=== PATIENT | male | born 1965 | race Caucasian/White ===

== ENCOUNTER 2018-10-10 10:42 | Inpatient (IN) | payer BC, OTHER ==
[~2018-10-10] VITALS: Ht 185.4 cm; Wt 106.6 kg
[2018-10-10 11:07] LABS: ABSOLUTE NEUTROPHILS 3.9 thou/uL (1.4-8.2); BASOPHILS 0.7 % (0.0-2.0); EOSINOPHILS 1.4 % (0.0-3.0); HEMOGLOBIN 14.9 gm/dL (14.0-18.0); LYMPHOCYTES 17.8 % (24.0-44.0); MCH 30.7 pg (26.0-34.0); MCHC 33.7 g/dL (28.0-37.0); MCV 91.1 fL (80.0-100.0); MONOCYTES 8.5 % (1.0-8.0); PLATELET COUNT 182 thou/uL (150-400); POLYS 71.6 % (36.0-66.0); RBC 4.84 mil/uL (4.50-6.00); RDW 13.6 % (10.5-14.5); WBC 5.4 thou/uL (4.0-11.0)
[2018-10-10 11:17] LABS: CALCIUM 8.7 mg/dL (8.5-10.1); POTASSIUM 3.8 mmol/L (3.5-5.1)
[2018-10-10 11:23] LABS: ALBUMIN 3.6 g/dL (3.4-5.0); TOTAL BILIRUBIN 0.5 mg/dL (<0.1-1.0)
--- NOTE | 2018-10-10 11:50 | NUR ---
CONSCIOUS SEDATION FOR LEFT ANKLE REDUCTION INITIATED AND COMPLETED AT 11:50. A TOTAL OF KETAMINE 150MG, VERSED 2MG AND ETOMIDATE 10MG GIVEN FOR SEDATION. MEDICATION PUSHED IVSP BY JOHANN GONZALEZ. DR NEFF AT BEDSIDE. REDUCTION COMPLETED AND RIGID SPLINT PLACED. PT TOLERATED WELL. WILL CONTINUE TO MONITOR.
[2018-10-10 15:17] VITALS: BP 105/62
[2018-10-10] MEDS ORDERED: METFORMIN HCL1000 MG PO (15:32)
[2018-10-10] MEDS ORDERED: AMARYL2 MG (15:33)
[2018-10-10] MEDS ORDERED: AZATHIOPRINE50 MG PO (15:34)
[2018-10-10] MEDS ORDERED: LOPRESSOR50 PO (15:34)
[2018-10-10] MEDS ORDERED: LIPITOR10 MG PO (15:35)
[2018-10-10] MEDS ORDERED: COLAZAL750 M1 PO (15:35)
[2018-10-10] MEDS ORDERED: ZOLPIDEM TARTRA10 MG PO (15:35)
[2018-10-10] MEDS ORDERED: IRBESARTAN-HCT1 EAC1 PO (15:36)
[2018-10-10 19:15] LABS: PROTIME 9.7 Seconds (9.3-11.4)
[2018-10-10 21:00] VITALS: BP 125/83; BP 147/90
--- NOTE | 2018-10-10 23:42 | O ---
[address] [address] OPERATIVE REPORT Name: CLAY WALLACE Room #: 432-P ADM IN M.R.#: [id number] Admission: 10/10/18 ������������������ Attend Phys: Davon Mendoza MD Discharge: ������������������ Date of : 69 Report #: [id number] THIS REPORT FOR: //name// CC: Davon Mendoza DATE OF SERVICE: 10/10/2018 SERVICE: Orthopedics. FACILITY: [facility]. SURGEON: Clint Chu MD SENIOR STRATEGY MANAGER: Desiree Rangel NP. INDICATION FOR SENIOR STRATEGY MANAGER: Extremity positioning, retraction, assistance with the provisional fixation and internal fixation. PREOPERATIVE DIAGNOSIS: Type 2 open left ankle fracture dislocation. POSTOPERATIVE DIAGNOSES: 1. Type 2 open left ankle fracture dislocation. 2. Traumatic articular cartilage injury of the talus with intra-articular loose body. 3. Trimalleolar equivalent, left ankle fracture dislocation. PROCEDURES: 1. Irrigation and debridement down to bone, left open ankle fracture dislocation. 2. Open reduction and internal fixation of left trimalleolar equivalent ankle fracture with fixation of the fibula. COMPLICATIONS: None. DRAINS: None. SPECIMENS: None. ANESTHESIA: General. FINDINGS: 1. Clean wound on deep inspection. 2. Comminution within the joint with articular cartilage fragments of the talar, which were removed. 3. Small posterior malleolus fracture, treated with ligamentotaxis reduction. 4. Synthes one third tubular fibular plate with hybrid fixation. [address] [address] OPERATIVE REPORT Name: CLAY WALLACE Room #: 432-P [facility] IN [facility]#: [id number] Admission: 10/10/18 ������������������ Attend Phys: Davon Mendoza MD Discharge: ������������������ Date of : 69 Report #: [id number] HISTORY AND INDICATIONS: The patient is a 53-year-old diabetic gentleman who slipped in the mud going out to his yard to cut the grass this morning. He sustained an ankle fracture dislocation that was open. He received antibiotics in the Emergency Room as well as closed reduction and initial wound care. Orthopedics was consulted for evaluation, treatment, and management. He was indicated for surgical treatment. Risks, benefits, alternatives, and indications of surgery were discussed with him in detail. Risks include but not limited to pain, bleeding, infection, injury to nerves or blood vessels, malunion, nonunion, need for further surgery including revision as well as complications related to anesthesia. We had discussion about open ankle fracture in the context of his diabetes and the significant risk they are in. His questions were answered. He gave full informed consent and wished to move forward with surgical treatment. PROCEDURE IN DETAIL: After left lower extremity was correctly identified in the preoperative holding area as the operative site, the patient was taken to the operating room where general anesthesia was induced without complication. Tourniquet was applied to the left leg. Left lower extremity was prepped and draped in standard sterile fashion and leg was held up for exsanguination. Time-out procedure was performed and the tourniquet was inflated. He had a puncture wound measuring 15 mm in length transversely in the anteromedial aspect of the ankle. There was shredded skin present and that was contused as well. This was excised sharply and then laceration was extended anteriorly and distally as well as proximally and posteriorly allowing full visualization. The saphenous vein was identified and was protected throughout the exposure. The medial aspect of the ankle was opened and explored. There was fracture hematoma within the ankle. There was some shredding of the deltoid ligaments in the anterior capsule. The frayed injured tissue was excised sharply, the talus was evaluated. There was a significant injury to the talus articular cartilage. A small fragment was lavaged and was removed. This fragment measured approximately 5 mm x 5 mm and a total surface area of the articular cartilage damage was approximately 15 x 15 mm towards the anterior aspect of the talus. The posterior malleolus comminuted fragment was visualized, was debrided of hematoma and was assessed for reduced ability and it was felt that it was going to be reducible when the ankle itself was reduced and it was a small Lisfranc fragment that internal fixation would not be a viable option for it. The final decision on the posterior malleolus was made after fixation of lateral side. After the wound was copiously irrigated and the joint was irrigated as well with the pulse lavage, attention was turned towards the lateral side. A longitudinal incision made off of the lateral aspect of the ankle. Dissection was taken down to the level of the fibula. The superficial peroneal nerve was visualized within the wound, it was dissected on the posterior side of the nerve and then [facility] [address] [place] [address] OPERATIVE REPORT Name: CLAY WALLACE Room #: 432-P ADM IN M.R.#: [id number] Admission: 10/10/18 ������������������ Attend Phys: Davon Mendoza MD Discharge: ������������������ Date of : 69 Report #: [id number] was retracted anteriorly and protected throughout the procedure. The fracture was then carefully visualized and debrided of hematoma. There was comminution of the fibula anteriorly at the syndesmosis and then posteriorly as well. The syndesmosis; however, did not appear to be ruptured. The fibular shaft was then reduced to the distal fragment and held in place provisionally. A lag screw was placed anterior to posterior and a good compression across the fracture was achieved. C-arm was used to aid in the assessment of the reduction as well as the fibular length and the tibiotalar alignment. After this was placed, a 7-hole one third tubular plate was selected for neutralization mode with a history of diabetes and the open fracture, I felt that most rigid fixation available was optimal. Unfortunately, we had to use a one-third tubular plate because of his thin skin, distally we are not able to use a thicker plate. For that reason, elected for a locking plate and used hybrid fixation with nonlocking screws to compress the plate down the bone and then locking screws to provide enhanced fixation. C-arm was used to aid in the placement of the screws and a secure neutralization was achieved with the internal fixation with a total of 6 screws. At this point, the cotton test was performed under C-arm to ensure that the syndesmosis was stable and no fixation was required across the syndesmosis. At this point, cross-table lateral x-ray was used. The posterior malleolus was evaluated. There was acceptable alignment and anatomic tibiotalar relationship on the lateral view with the ankle in neutral dorsiflexion. Final x-rays were taken and then, the wounds were once again irrigated. The medial side was closed with 2-0 PDS and then, nylon after the tourniquet was let down, hemostasis achieved. The lateral side was closed with 2-0 Vicryl followed by 3-0 nylon as well. Sterile dressing was applied followed by a very well-padded short leg splint. The splint was specifically over padded due to his history of diabetes in order to prevent any wound issues if at all possible. PLAN: Postoperative plan will be for 3 months of nonweightbearing based on radiographic signs of healing. The patient will also receive 48 hours of IV antibiotics due to the open fracture and then, will be allowed for discharge home. ��������������������������������������������� <ELECTRONICALLY SIGNED> ���������������������������������������� By: Clint Chu MD ��������������������������������������������� 10/10/18 2342 [id number] Clint Chu MD /nt
[2018-10-10 23:50] VITALS: BP 125/83
[2018-10-11 00:50] VITALS: BP 115/57
[2018-10-11 03:10] VITALS: BP 121/71
[2018-10-11 05:57] LABS: HEMATOCRIT 38.5 % (42.0-52.0); HEMOGLOBIN 13.2 gm/dL (14.0-18.0); MCH 31.1 pg (26.0-34.0); MCHC 34.3 g/dL (28.0-37.0); MCV 90.5 fL (80.0-100.0); RBC 4.26 mil/uL (4.50-6.00); RDW 13.9 % (10.5-14.5); WBC 7.5 thou/uL (4.0-11.0)
[2018-10-11 06:01] LABS: CALCIUM 7.8 mg/dL (8.5-10.1); CREATININE 0.8 mg/dL (0.7-1.3); POTASSIUM 3.7 mmol/L (3.5-5.1)
--- NOTE | 2018-10-11 06:16 | NUR ---
PT ARIVED ON THE UNIT POST OP FROM LEFT ANKLE FX. BRYCE WRAPS IN PLACE AND BOTH EXTREMITIES ELEVATED. PAIN MEDS GIVEN FOR MANAGEMENT AND DOCUMENTED. FALL PREC IN PLACE AND CALL LIGHT WITHIN REACH. POC DONE AQND WILL CONTINUE TO MONITOR TILL EOS
[2018-10-11 08:30] VITALS: BP 136/85
--- NOTE | 2018-10-11 09:09 | H ---
[facility] [place] [address] [place] [address] HISTORY AND PHYSICAL Name: CLAY WALLACE Room #: 432-P ADM IN M.R.#: [id number] Admission: 10/10/18 ������������������ Attend Phys: Davon Mendoza MD Discharge: ������������������ Date of : 69 Report #: [id number] THIS REPORT FOR: //name// CC: Davon Mendoza DATE OF SERVICE: 10/10/2018 CHIEF COMPLAINT: Left ankle pain. HISTORY OF PRESENT ILLNESS: The patient is a 53-year-old gentleman who slipped this morning and suffered a left ankle injury. He was over at his brother's house mowing the lawn and using the hose to wash down some debris when he slipped in a puddle of gravel and mud and fell to the ground. He initially complained of pain in his left knee and was unable to stand or walk, but he noticed a deformity of the left ankle. He was brought to the Emergency Room and has an open fracture of the distal left leg at the ankle. PAST MEDICAL HISTORY: Diabetes type 2, Crohn disease, hypertension, dyslipidemia Osteoarthritis of the knee. PAST SURGICAL HISTORY: None. FAMILY HISTORY: Noncontributory. SOCIAL HISTORY: Denies chronic tobacco use. Does admit to alcohol use. ALLERGIES: LISINOPRIL. MEDICATIONS: He did not have his list available with him. REVIEW OF SYSTEMS: Denies headache, chest pain, shortness of breath, abdominal pain, nausea, vomiting, diarrhea, constipation, dysuria, syncope. OBJECTIVE: VITAL SIGNS: Per the nursing note. GENERAL: He is awake and alert. HEAD AND NECK: Unremarkable. LUNGS: Clear. HEART: Regular. ABDOMEN: Soft, normoactive bowel sounds. EXTREMITIES: No edema. Left ankle has been placed in a splint. NEUROLOGIC: Cranial nerves intact. He is alert and oriented. Motor strength intact. X-ray reveals a trimalleolar open fracture dislocation at the left ankle. [facility] [address] [place] [address] HISTORY AND PHYSICAL Name: CLAY WALLACE Room #: 432-P [facility] IN [facility]#: [id number] Admission: 10/10/18 ������������������ Attend Phys: Davon Mendoza MD Discharge: ������������������ Date of : 69 Report #: [id number] ASSESSMENT: 1. Open trimalleolar fracture of the left ankle. 2. Diabetes type 2. 3. Crohn disease. 4. Hypertension. PLAN: He will be admitted. He has received IV antibiotics in the ER. Dr. Chu has been consulted from Orthopedics and will plan for surgical intervention. ��������������������������������������������� <ELECTRONICALLY SIGNED> ���������������������������������������� By: Davon Mendoza MD ��������������������������������������������� 10/11/18 0909 1314 1345 Davon Mendoza MD /nt
--- NOTE | 2018-10-11 12:11 | NUR ---
PT A&OX4. STARTED PT/OT TODAY WITH WALKER. IV INTACT IN R AC INFUSING ANTIBIOTICS. SOFT CAST NOTED LLE. PT SEEMS SLIGHTLY DISTURBED NOT BEING ABLE TO GO FOR AT LEAST 48. SITTING IN CHAIR LLE IS ELEVATED, CHAIR ALARM ON. WILL CONT POC.
--- NOTE | 2018-10-11 13:52 | NUR ---
INITIAL ASSESSMENT: Pt evaluated for d/c planning needs. Reviewed chart and spoke with nurse, PT and pt. Pt is alert and oriented. Pt lives alone in house and was independent with ADL's prior to admission. Pt has no DME and has not had home health in the past. Pt plans on returning home on d/c from hospital. PT is recommending pt have crutches for home use. Contacted [employer] liaison and she will deliver crutches prior to d/c. Will remain available to assist as needed.
[2018-10-11 17:24] VITALS: BP 144/85
--- NOTE | 2018-10-11 18:20 | EKG ---
[place] [address] [facility] [place] [address] ELECTROCARDIOGRAM REPORT Name: CLAY WALLACE Room #: 432-P ADM IN M.R.#: [id number] ������������������ Admission: 10/10/18 ������������������ Attend Phys: Davon Mendoza MD Discharge: ������������������ Date of : 69 Report #: [id number] ����������������������������������������������������������������� [id number] THIS REPORT FOR: //name// [facility] ED Test Date: 2018-10-10 Test Time: 11:31:58 Pat Name: CLAY WALLACE Department: Room: [facility] Gender: M Vice President [employer]: ULISES : 1965 Requested By: Skip Ko Order Number: [id number] MD: Blu Meyer Measurements Intervals [place] Rate: 51 P: -17 ND: 171 QRS: -35 QRSD: 109 T: 9 QT: 446 QTc: 411 Interpretive Statements Sinus rhythm Left axis deviation No previous ECG available for comparison Electronically Signed On 10-11-2018 18:20:06 CDT by Blu Meyer [email or web address] ��������������������������������������������� <ELECTRONICALLY SIGNED> ���������������������������������������� By: Blu Meyer MD, [facility] ��������������������������������������������� 10/11/18 1820 1131 1131 Blu Meyer MD, FACC /EPI
[2018-10-11 22:34] VITALS: BP 119/61
[2018-10-12 05:17] VITALS: BP 135/85
--- NOTE | 2018-10-12 05:58 | NUR ---
PATIENT IS ADVANCING SLOWLY IN HIS CARE PLAN. VITAL SIGNS STABLE WITH PATIENT HAVING NO COMPLAINTS OF NAUSEA. PATIENT DID COMPLAIN OF PAIN FREQUENTLY IN LEFT LOWER EXTREMITY WHICH WAS TREATED APPROPRIATELY THROUGH MEDICATION AND POSITIONING. FULLY ORIENTED, PATIENT IS ABLE TO CALL APPROPRIATELY FOR NEEDS AND PARTICIPATE IN CARE PLAN. SURGICAL CAST C/D/I WITH PATIENT HAVING SENSATION IN EXTREMITY AND ABLE TO MOVE TOES. PATIENT HAS NOT BEEN OUT OF BED THIS SHIFT AND IS ANXIOUS ABOUT AMBULATING. CONTINUE PLAN OF CARE.
[2018-10-12 08:37] VITALS: BP 147/89
[2018-10-12 18:10] VITALS: BP 136/64
[2018-10-12 21:40] VITALS: BP 146/86
--- NOTE | 2018-10-13 02:11 | NUR ---
ASSESSMENT COMPLETED.PT WAS OBSERVED SITTING UP IN CHAIR AT THE START OF SHIFT WATCHING TV.PT VERY AGITATED AT START OF SHIFT,VOICED CONCERN ABOUT HIS IV PUMP GOING OFF OFTEN AND FALL PRECAUTIONS.PT WAS EDUCATED ON THE IMPORTANCE OF ADHERING TO THE FALL PROTOCOL,VOICED UNDERSTANDING.PT UP WITH SBA AND WALKER.URINAL AT BEDSIDE WITH ADEQUATE OUTPUT.DRSG ON HIS L ANKLE C/D/I.AMBIEN ADMINISTERED PER PT'S REQUEST.PT SLEEPING COMFORTABLY ON HIS BED AT THIS TIME.FALL PRECAUTIONS IN PLACE,CALL LIGHT WITHIN REACH
[2018-10-13 06:00] VITALS: BP 151/93
[2018-10-13 08:51] VITALS: BP 134/98
[2018-10-13] MEDS ORDERED: HYDROCODON-ACE1 EAC7 PO (09:35)
[2018-10-13] MEDS ORDERED: ASA5UEC PO (09:39)
[2018-10-13] MEDS ORDERED: NORCO 10-325 T1 EACH PO (09:44)
[2018-10-13 09:46] VITALS: BP 134/98
--- NOTE | 2018-10-13 10:44 | NUR ---
ASSUMED CARE OF PT AT 0700. ASSESSMENT CHARTED. A&O,X4. C/O 10/29 LLE PAIN, PAIN MEDS GIVEN ORDERED. NWB, WALKER AND GAIT BELT WHEN AMBULATING. NEW D/C ORDERS. PT WALKER DELEIVERED TODAY, AT BEDSIDE. NEW D/C ORDERS. D/C INFORMATION GIVEN TO PT AT BEDSIDE. INSTRUCTED TO F/U WITH MAURA AND DR. SARMIENTO. NEW SCRIPTS AND CARENOTES GIVEN. IV REMOVED, NO BLEEDING NOTED. WAITING FOR PT SISTER TO PICK PT UP. WILL CONTINUE TO MONITOR.
--- NOTE | 2018-10-13 20:48 | NUR ---
[facility] CALLED TO CLARIFY HYDROCODONE SCRIPT WRITTEN WITHOUT QUANTITY, TALKED WITH ISMAEL PHARMACIST. TOLD HER THIS RN WOULD CALL DR. SARMIENTO TO CLARIFY SCRIPT. PAGED AND SPOKE TO DR. SARMIENTO, HE STATED INTENDED FOR QUANTITY OF 30 TABS. CALLED ISMAEL AT PHARMACY TO CLARIFY SCRIPT, SHE STATED THEY ALREADY DISPENSED 180 TABS FOR SCRIPT WRITTEN FOR 30 [address] PATIENT[address] DR. SARMIENTO AWARE OF PATIENT RECIEVING 180 TABS. SPOKE TO ENID, PHARMACIST AT [facility] - STATED THEY WOULD CALL THE PATIENT AND CORRECT THE FILLED AMOUNT. NO RESPONSE FROM ENID AT THIS TIME ABOUT UPDATES.
--- NOTE | 2018-10-14 11:54 | D ---
[facility] [place] [address] [place] [address] DISCHARGE SUMMARY Name: CLAY WALLACE Room #: 432-P [facility] IN M.R.#: [id number] Admission: 10/10/18 ������������������ Attend Phys: Davon Mendoza MD Discharge: 10/13/18 ������������������ Date of : 69 Report #: [id number] THIS REPORT FOR: //name// CC: Davon Mendoza FINAL DIAGNOSES: 1. Open left ankle fracture. 2. Diabetes type 2. 3. Hypertension. 4. Crohn's disease. HOSPITAL COURSE: The patient was admitted and had surgical intervention for his open fracture. Please see the operative note. He received routine antibiotics. His other home medications were continued. He was trained with physical therapy on a nonweightbearing status on his left leg. PHYSICAL EXAMINATION: GENERAL: On the day of discharge, he was awake and alert. VITAL SIGNS: Stable. LUNGS: Clear. HEART: Regular. ABDOMEN: Soft, normoactive bowel sounds. EXTREMITIES: Showed no edema. DISPOSITION: He will be discharged home, nonweightbearing on the left leg. Follow up with Dr. Chu 1 week. Follow up with me in one month. Diabetic diet. Activity as tolerated otherwise. I will have hydrocodone as needed for pain and resume all his home medications. ��������������������������������������������� <ELECTRONICALLY SIGNED> ���������������������������������������� By: Davon Mendoza MD ��������������������������������������������� 10/14/18 1154 0941 0953 Davon Mendoza MD /nt
--- NOTE | 2018-10-14 16:36 | NUR ---
RECEIVED VOICEMAIL FROM PT SAYING HE WASN'T DPOING WELL AT HOME AND NEEDED SOME ASSIST. DISCUSSED WITH DR SARMIENTO AND HE ORDERED HH SERVICES. FAXED ORDERS TO [facility] & VERIFIED RECEIPT OF THE FAX. TRIED CALLING PT BACK & LEFT HIM A MESSAGE THAT HH SERVICES HAD BEEN ORDERED.
== END 2018-10-13 11:30 | disposition home health service (06) | DRG 493 ==
LOC: ER 10:42 → 4E 13:15 → EROBS 13:15 → 4E 15:31 → TBA 15:35 → 4E 21:05 → ENTRNSPT 10-13 11:13 → EDTRNSPTSTS 10-13 11:16 → 4E 10-13 11:30
PROVIDERS: Emergency Medicine; ADMIT Internal Medicine Geriatric Medicine
PROC: 0QSHXZZ Reposition Left Tibia, External Approach (ICD-10-PCS; principal; 2018-10-10)
PROC: 0SSG0ZZ Reposition Left Ankle Joint, Open Approach (ICD-10-PCS; principal; 2018-10-10)
PROC: 2W3RX1Z Immobilization of Left Lower Leg using Splint (ICD-10-PCS; principal; 2018-10-10)
DX: S82.852B Displaced trimalleolar fracture of left lower leg, initial encounter for open fracture type I or II (principal); K50.90 Crohn's disease, unspecified, without complications; E11.9 Type 2 diabetes mellitus without complications; I10 Essential (primary) hypertension; E78.5 Hyperlipidemia, unspecified; Z60.2 Problems related to living alone; F12.90 Cannabis use, unspecified, uncomplicated; M17.10 Unilateral primary osteoarthritis, unspecified knee; W01.0XXA Fall on same level from slipping, tripping and stumbling without subsequent striking against object, initial encounter; Y93.89 Activity, other specified; Y92.098 Other place in other non-institutional residence as the place of occurrence of the external cause; Y99.8 Other external cause status; Z79.899 Other long term (current) drug therapy; Z88.6 Allergy status to analgesic agent; Z23 Encounter for immunization; S93.02XA Subluxation of left ankle joint, initial encounter
CPT/HCPCS: 10084; 50010; 50101; 50341; 50343; 50386; 51131; 53078; 56524; 56525; 56527; 56667; 57091; 57103; 57180; 62110; 62900; 70005

== ENCOUNTER 2018-11-01 11:09 | Inpatient (IN) | payer BC, OTHER ==
[~2018-11-01] VITALS: Ht 185.4 cm; Wt 99.3 kg
--- NOTE | ~2018-11-01 | O ---
[facility] [place] [address] [place] [address] OPERATIVE REPORT Name: CLAY WALLACE Room #: 457-P [facility] IN M.R.#: [id number] Admission: 11/01/18 Attend Phys: Clint Chu MD Discharge: Date of : 69 Report #: [id number] THIS REPORT FOR: //name// CC: Davon Chu DATE OF SERVICE: 11/01/2018 SERVICE: Orthopedics. FACILITY: [facility]. SURGEON: Clint Chu MD MAGNETO REPAIRER: None. PREOPERATIVE DIAGNOSES: 1. Status post traumatic left open ankle fracture dislocation. 2. Status post open reduction and internal fixation with irrigation and debridement, left open ankle fracture dislocation. 3. Posttraumatic wound infection, left ankle. 4. Diabetes mellitus. POSTOPERATIVE DIAGNOSES: 1. Status post traumatic left open ankle fracture dislocation. 2. Status post open reduction and internal fixation with irrigation and debridement, left open ankle fracture dislocation. 3. Posttraumatic wound infection, left ankle. 4. Diabetes mellitus. PROCEDURE: Incision and drainage down to bone, left ankle wound. ANESTHESIA: General. COMPLICATIONS: None. DRAINS: None. SPECIMENS: Cultures taken x 3. Cultures were taken before antibiotic administration and sent for aerobic, anaerobic, fungal and AFB studies. FINDINGS: 1. Medial traumatic wound is clean without any signs of infection. 2. Lateral wound had a slight amount of purulence at the proximal and distal aspects of the wound. The central portion of the wound was opened all the way down to the bone and found to be healthy. No purulence around the plate noted. [facility] [address] [place] [address] OPERATIVE REPORT Name: CLAY WALLACE Room #: 457-P [facility] IN M.R.#: [id number] Admission: 11/01/18 Attend Phys: Clint Chu MD Discharge: Date of : 69 Report #: [id number] 3. No signs of hardware loosening or osteomyelitis. HISTORY: The patient is a gentleman who 3 weeks ago sustained an open fracture dislocation of his ankle at his home. He presented to the Emergency Room where we took him for irrigation, debridement and open reduction and internal fixation. He was followed in the clinic postoperatively and was having some mild wound drainage, which we treated with empiric oral antibiotics and then had cultures that came back that showed polymicrobial infection and ultimately felt that surgical treatment was the best option for him. Risks, benefits, alternatives and indications of surgery were discussed with him in detail. Risks include but not limited to pain, bleeding, persistence of the infection, recurrence, need for further surgery including hardware removal and revision, irrigation and debridement as well as complications related to anesthesia and complications related to the original traumatic injury as to including loss of limb and loss of life. He understood these risks and wished to proceed with surgery. PROCEDURE IN DETAIL: After left lower extremity was correctly identified in preoperative holding area as the operative extremity, the patient was taken to the operating room where general anesthesia was induced without complication. He was padded appropriately. Prophylactic antibiotics were not administered as he is on oral antibiotic regimen. However, we did administer vancomycin and Rocephin after cultures were obtained. Left leg was prepped and draped in standard sterile fashion. Time-out procedure was performed. No tourniquet was utilized. The sutures were removed. The medial wound was carefully evaluated and looked very healthy. The traumatic wound had no evidence of breakdown and really nothing more than stem removal of the superficial skin, otherwise was fine and did not need any further debridement. The lateral wound was evaluated. There was some purulence in the distal aspect of the wound as well as the proximal aspect of the lumen. No stitches were removed, but the remaining portion was appearing well-healed. I removed all of the stitches, opened the entire wound down to the plate and then thoroughly irrigated with a gentle pulsatile lavage with bacitracin irrigation. The cultures were taken prior to irrigation of the purulent fluid with two of the distal drainage and one of the proximal drainage and then the antibiotics were administered. The plate itself was stable without any evidence of biofilm present. There was no communication deep. The ankle joint had no evidence of effusion. There was no expressible fluid when the ankle was taken through an abrupt range of motion. The ankle was also stable in regards to the traumatic wound that was treated with open reduction and internal fixation. Prior to irrigation of the total of 6 bags of fluid with gravity inflow, a sharp excision was performed with some frayed tissue down just adjacent to the plate, but there was no gross necrosis. The wound was then copiously irrigated and then the [address] [address] OPERATIVE REPORT Name: CLAY WALLACE Room #: 457-P [facility] IN M.R.#: [id number] Admission: 11/01/18 Attend Phys: Clint Chu MD Discharge: Date of : 69 Report #: [id number] wound was closed with 2-0 PDS suture and then 3-0 nylon in a mattress suture fashion. Sterile dressing was applied followed by short leg well-padded splint. The patient was awakened from anesthesia and taken to recovery room in stable condition. No complications. All counts were recorded as correct. By: 1646 1842 Clint Chu MD /nt
[~2018-11-01 11:09] MED LIST: AMARYL2 MG PO; ASA5UEC PO; ASPIRIN325 PO; AZATHIOPRINE50 MG PO; BACTRIM DS TAB1 EACH PO; COLAZAL750 M1 PO; HYDROCODON-ACE1 EAC7 PO; IRBESARTAN-HCT1 EAC1 PO; LIPITOR10 MG PO; LOPRESSOR50 PO; METFORMIN HCL1000 MG PO; NORCO 10-325 T1 EACH PO; PENICILLIN V P500 MG PO; ZOLPIDEM TARTRA10 MG PO
[2018-11-01 13:33] VITALS: BP 120/65
[2018-11-01 18:00] VITALS: BP 115/61
[2018-11-01 18:30] VITALS: BP 119/69
--- NOTE | 2018-11-01 19:38 | NUR ---
ASSUMED CARE OF PATIENT APPROX. 1730. PATIENT A&OX4, VSS, DENIES PAIN. PATIENT CAME UP WITH LEFT ANKLE WRAPPED IN DRESSING. FALL PRECAUTIONS IN PLACE. NO SIGNS OF DISTRESS. PATIENT ABLE TO MOVE TOES ON LEFT, FEEL SENSATION. COLOR APPROPRIATE AND WARM TO TOUCH. WILL CONTINUE TO MONITOR.
[2018-11-01 19:44] VITALS: BP 118/69
[2018-11-01 22:54] LABS: ABSOLUTE NEUTROPHILS 5.9 thou/uL (1.4-8.2); BASOPHILS 0.5 % (0.0-2.0); EOSINOPHILS 0.1 % (0.0-3.0); HEMATOCRIT 33.8 % (42.0-52.0); HEMOGLOBIN 11.4 gm/dL (14.0-18.0); LYMPHOCYTES 5.9 % (24.0-44.0); MCH 30.2 pg (26.0-34.0); MCHC 33.7 g/dL (28.0-37.0); MCV 89.5 fL (80.0-100.0); MONOCYTES 2.8 % (1.0-8.0); PLATELET COUNT 275 thou/uL (150-400); POLYS 90.7 % (36.0-66.0); RBC 3.78 mil/uL (4.50-6.00); RDW 13.8 % (10.5-14.5); WBC 6.5 thou/uL (4.0-11.0)
[2018-11-01 23:10] LABS: ALBUMIN 2.8 g/dL (3.4-5.0); CALCIUM 8.6 mg/dL (8.5-10.1); CREATININE 1.1 mg/dL (0.7-1.3); POTASSIUM 5.2 mmol/L (3.5-5.1); TOTAL BILIRUBIN 0.3 mg/dL (<0.1-1.0); TOTAL PROTEIN 7.1 g/dL (6.4-8.2)
--- NOTE | 2018-11-02 04:45 | NUR ---
PATIENT ALERT AND ORIENTED X4. STATES READY TO GET UP AND DRESS AND GO HOME. PASSING FLATUS BUT NO BM. DRESSING ON L FOOT D/I. ABLE TO BARRY TOES, TOES WARM WITH GOOD SENSATION. DENIES PAIN. SLEPT OFF AND ON DURING NIGHT.
[2018-11-02 04:59] VITALS: BP 100/58
[2018-11-02 07:25] VITALS: BP 126/74
--- NOTE | 2018-11-02 09:24 | NUR ---
ORDERS RECEIVED FOR EVAL AND TREAT NWB. SPOKE TO Pt WHO HAS BEEN NWB SINCE SEPTEMBER AND NOT HAVING ANY ISSUES WITH MOBILITY. HOPING TO GO HOME THIS MORNING AND DOES NOT FEEL HE NEEDS FURTHER INSTRUCTION. Pt DECLINING FORMAL P.T. EVAL
[2018-11-02 11:16] VITALS: BP 126/74
--- NOTE | 2018-11-02 12:05 | NUR ---
Assess due to RD consult received; pt with ankle wound trauma and infection. Hx DM and crohns. + wt loss ~15 lb over past month likely related to wound infection. Pt reports good appetite but increased night sweats and losing wt rapidly. BG 119, states last A1C in Dec >8. Speaks very rapidly and interupts conversation. Had many questions regarding healthy diet plan to continue to lose reasonable amount of wt and control BG. Asking about Keto diet. Encouraged to adapt more healthier eating plan with good choices from complex carbohydrates, lean protein, vegetables. Pt appreciative of information. Did not want education materials but would like to follow up with [facility] or [facility] outpatient dietitian, Otherwise low nutrition risk
--- NOTE | 2018-11-02 12:15 | NUR ---
CONSULTED TO PLACE A PICC FOR A PATIENT DISCHARGING TO HOME WITH IV ANTIBIOTICS. ORDER AND CONSENT NOTED. THE PROCEDURE WELL BENIFITS AND RISKS FOR DVT AND INFECTION WERE DISCUSSED AND HE VERBALIZED UNDERSTANDING. THE RIGHT UPPER ARM BASILIC WAS WIDLEY PATENT. A #4F SINGLE LUMEN POWER PICC WAS PLACED PER HOSPITAL POLICY AFTER A BEDSIDE TIMEOUT WAS COMPLETED. THE LINE WAS TRIMMED TO 43CM AND ADVANCED WITHOUT DIFFICULTY. A STAT CHEST XRAY WAS DONE TO VERIFY PLACEMENT. THE LINE WAS RELEASED FOR USE AFTER THE RADIOLOGIST CONFIRMED LINE WAS IN GOOD POSITION FOR USE
[2018-11-02 14:20] VITALS: BP 91/57
--- NOTE | 2018-11-02 14:53 | NUR ---
PT ADMITTED RELATED TO LT ANKLE I&D. CM REVIEWED CHART AND SPOKE WITH CARE TEAM. CM MET WITH PT AT BEDSIDE THIS DAY. PT IS A&O X4. CM ROLE INTRODUCED. PT INDICATED HE LIVES IN A HOUSE ALONE WITH 2 STEPS TO ENTER AND 5 STEPS INSIDE. PT INDICATED HE HAS A FWW FOR USE UPON DC. PT INDICATED HE HAD USED [facility] IN THE PAST. THEY INDICATED THAT THEY ARE ABLE TO ACCEPT HIM. REFERRAL WAS SENT TO [facility] AND THEY ARE ABLE TO ACCEPT FOR ZOSYN 4.5GM Q 8 HRS. ORDERS TO BE FAXED ONCE COMPELETED.
[2018-11-02 16:04] VITALS: BP 126/74
--- NOTE | 2018-11-02 16:14 | NUR ---
CALLED [facility] [phone] TO GIVE HOME HEALTH ORDERS [facility]OUTINE PICC CARE . ZOSYN 4.5 GM IV Q 8 HRS ONE WEEK CALL REFILLS, CBC CMP ESR Q WEEK F/U ID CLINIC ONE WEEK POST DISCHARGE SPOKE WITH RYAN
--- NOTE | 2018-11-02 16:23 | NUR ---
SPOKE WITH DR ARIC VILLANUEVA WHO GAVE ORDER TO DC VANCO XS 2 DOSES EXPLAINED THAT CULTURE WOULD NOT BE BACK FOR 24 TO 48 HOURS.
--- NOTE | 2018-11-02 16:39 | NUR ---
PT WAS NOTIFIED THIS AFTERNOON THAT HOME INFUSION AND HH SERVICES WERE SET AND THAT WE WERE JUST AWAITING [facility]TH[facility] CIRCULATION TECHNICIAN TO ENTER FINAL DC ORDERS. PT INEDIATELY BECAME AGITATED YELLING AND CURSING AND INDICATING THAT "SOMEONE HAD DROPPED THE BALL" EVERYTHING SHOULD HAVE BEEN ARRANGED SOONER. CM INDICATED THAT YAMILENANCY HAD BEEN VERY RESPONSIVE IN DOING HIS BEDSIDE TEACH AND THAT WE WERE JUST AWAITING ORDERS TO BE ENTERED. DAVID CARTY WAS NOTIFIED AND SHE PROMPTLY COMPLETED DC ORDERS. GALE WAS NOTIFIED AND HE FOLLOWED UP WITH PT WELL. CM NOTIFIED CM POLE PEELER OF PT'S ISSUE. NURSE CALLED [facility] AND GAVE THEM VERBAL ORDER FOR THEM TO MIX AND DELIVER THE ZOSYN. PT IS TO HAVE [facility] AND [facility]. [facility] WILL DO SOC TOMORROW. NO OTHER CM INTERVENTION INDICATED. CASE CLOSED.
--- NOTE | 2018-11-02 22:04 | HC ---
[address] [place] [address] CONSULTATION Name: CLAY WALLACE Jonny Room #: 457-P [facility] IN ..#: [id number] Admission: 11/01/18 Attend Phys: Clint Chu MD Discharge: 11/02/18 Date of : 69 Report #: [id number] THIS REPORT FOR: //name// CC: Davon Chu DATE OF SERVICE: 11/01/2018 REASON FOR CONSULTATION: I was asked to evaluate concerning left ankle surgical site infection. HISTORY OF PRESENT ILLNESS: The patient is a 53-year-old with diabetes and Crohn disease. On 10/10/2018, he slipped from his driveway in a puddle of mud and had an open fracture of his left ankle. This was a displaced bimalleolar fracture. He underwent ORIF. This was a type 2 open left ankle fracture, dislocation. He underwent irrigation and debridement down to bone with open reduction and internal fixation of the left trimalleolar equivalent ankle fracture with fixation of the fibula. He received 2 days of IV antibiotic therapy postoperatively. He was then discharged home. At his followup visit, he was noted to have purulent drainage from his lateral ankle incision. On 10/21/2018, cultures revealed Serratia marcescens, Klebsiella oxytoca and Enterococcus faecalis. The enterococcus was penicillin susceptible. The serratia was sensitive to third generation and fourth generation cephalosporins, quinolones, ertapenem, tobramycin and Bactrim. The Klebsiella was sensitive to third and fourth generation cephalosporins, quinolones, aminoglycosides, carbapenems, tetracycline and Bactrim. The patient was treated with Bactrim and penicillin along with rifampin. He did not improve and was hospitalized today for further surgical debridement. REVIEW OF SYSTEMS: He has had persistent pain in the ankle. No fever, chills or sweats. His diabetic control has been reasonable. He has had no fever or chills. He has had some night sweats. ALLERGIES: LISINOPRIL WITH COUGH. MEDICATIONS: As noted on his MAR, having received vancomycin and ceftriaxone postoperatively. PAST MEDICAL HISTORY: Diabetes, Crohn disease. FAMILY HISTORY: Noncontributory. SOCIAL HISTORY: Smokes marijuana. Moderate alcohol intake. Works in liquor retail. REVIEW OF SYSTEMS: Denies any cough, chest pain, nausea, vomiting, diarrhea, [facility] [address] [place] [address] CONSULTATION Name: CLAY WALLACE Room #: 457-P [facility].#: [id number] Admission: 11/01/18 Attend Phys: Clint Chu MD Discharge: 11/02/18 Date of : 69 Report #: [id number] abdominal pain, dysuria or frequency. Arthritis outside of the ankle issues, neurologic issues, psychiatric issues, hematologic issues, skin or lymph issues. PHYSICAL EXAMINATION: VITAL SIGNS: Afebrile and hemodynamically stable. GENERAL: Alert and cooperative. No distress. SKIN: Unremarkable with no rash or decubitus. No palpable adenopathy. HEENT: Eyes, without scleral icterus. Mouth without mucositis. NECK: Supple. LUNGS: Clear. HEART: Regular without murmur. ABDOMEN: Soft and nontender. No hepatosplenomegaly or mass identified. BACK: No CVA tenderness. GENITORECTAL: Not performed. EXTREMITIES: With left leg in splint. Toes were warm to the touch. Good capillary refill. Sensation intact. Pulses in the knee and groin normal. Cranial nerves intact. Strength in upper and lower extremities normal. Mood normal. LABORATORY STUDIES: Pending. IMPRESSION: 1. A 53-year-old diabetic with underlying Crohn disease, who suffered open left ankle fracture dislocation, 10/10/2018. Now with surgical site infection, polymicrobial growth from previous cultures including enterococcus, klebsiella and serratia. 2. Diabetes. 3. Crohn disease. RECOMMENDATIONS: 1. We will continue IV antibiotic therapy following surgical debridement today. Repeat cultures were obtained. We will follow up laboratory studies including CBC, CMP, sedimentation rate. 2. PICC line will be placed and outpatient infusion will be arranged. 3. He will continue diabetic control. <ELECTRONICALLY SIGNED> By: Gilberto Rios MD 11/02/18 [id number] Gilberto Rios MD /nt
== END 2018-11-02 16:30 | disposition home health service (06) | DRG 857 ==
LOC: OR 11:09 → TBA 12:28 → EDSTATUS 16:19 → PRE 16:20 → 4W 17:52 → ENTRNSPT 11-02 16:22 → 4W 11-02 16:30
PROVIDERS: ADMIT Orthopaedic Surgery Sports Medicine
PROC: 0JBR0ZZ Excision of Left Foot Subcutaneous Tissue and Fascia, Open Approach (ICD-10-PCS; principal; 2018-11-01)
PROC: 02HV33Z Insertion of Infusion Device into Superior Vena Cava, Percutaneous Approach (ICD-10-PCS; 2018-11-02)
DX: T81.40XA Infection following a procedure, unspecified, initial encounter (principal); K50.90 Crohn's disease, unspecified, without complications; E11.9 Type 2 diabetes mellitus without complications; Y83.8 Other surgical procedures as the cause of abnormal reaction of the patient, or of later complication, without mention of misadventure at the time of the procedure; Y92.89 Other specified places as the place of occurrence of the external cause; Z79.84 Long term (current) use of oral hypoglycemic drugs; Z88.8 Allergy status to other drugs, medicaments and biological substances
CPT/HCPCS: 10047; 27000; 50010; 50101; 50386; 53078; 56525; 56527; 57091; 57103; 62110; 62900; 70005

== ENCOUNTER 2018-11-03 14:31 | Emergency (ER) | payer BC, OTHER ==
[2018-11-03 14:34] VITALS: BP 129/78
== END 2018-11-03 20:58 | disposition home or self-care (01) ==
LOC: ER 14:31
DX: T82.898A Other specified complication of vascular prosthetic devices, implants and grafts, initial encounter (principal); E11.9 Type 2 diabetes mellitus without complications; I10 Essential (primary) hypertension; E78.5 Hyperlipidemia, unspecified; Z88.8 Allergy status to other drugs, medicaments and biological substances; Z79.82 Long term (current) use of aspirin; Z79.899 Other long term (current) drug therapy; Y92.89 Other specified places as the place of occurrence of the external cause

== ENCOUNTER → 2018-12-08 | Outpatient (CLI) | payer BC, OTHER | LOC: NUC 07:55 | DX: M25.872 Other specified joint disorders, left ankle and foot (principal) ==